=== PATIENT | male | born 2000 | race African-American/Black ===

== ENCOUNTER 2024-02-23 14:58 | Emergency (ER) | payer BC ==
[2024-02-23] MEDS ORDERED: Lidocaine 1% (PF) 30 ML VIAL ONE (15:45)
[2024-02-23] MEDS ORDERED: Boostrix 0.5 ML (Tdap) VIAL (>/=7 yrs of age) ONE (16:33)
[2024-02-23] MEDS ORDERED: Triple Antibiotic Oint 1 GM Packet ONE (16:39)
== END 2024-02-23 16:55 | disposition home or self-care (01) ==
LOC: CSHERS 14:58
DX: S61.051A Open bite of right thumb without damage to nail, initial encounter (principal); F17.210 Nicotine dependence, cigarettes, uncomplicated; Z55.6 Problems related to health literacy; W54.0XXA Bitten by dog, initial encounter
CPT/HCPCS: 90471; 90715; J2001